=== PATIENT | male | born 1995 | race Caucasian/White ===

== ENCOUNTER 2022-08-14 01:40 | Emergency (ER) | payer SELFPAY ==
[2022-08-14 02:11] LABS: Urine Blood Negative (Negative); Urine Glucose Negative (Negative); Urine Protein Negative (Negative); Urine Specific Gravity >=1.030 (1.005-1.030)
[2022-08-14] MEDS ORDERED: CYCLOBENZAPRINE 10 MG TAB ONE (02:19)
--- NOTE | 2022-08-14 02:23 | ER ---
Nurse's Notes [facility] Name: Earnest Johnston Age: 27 yrs Sex: Male : 1995 Arrival Date: 08/14/2022 Time: 01:46 Bed 7 Private MD: Diagnosis: Muscle spasm of back Presentation: 08/14 01:57 Chief complaint: Patient states: left lower back pain x 3 days pain increases with kl movement. Coronavirus screen: Vaccine status: Patient reports being unvaccinated. Ebola Screen: Patient negative for fever greater than or equal to 101.5 degrees Fahrenheit, and additional compatible Ebola Virus Disease symptoms. Initial Sepsis Screen: Does the patient meet any 2 criteria? No. Patient's initial sepsis screen is negative. Does the patient have a suspected source of infection? No. Patient's initial sepsis screen is negative. Risk Assessment: Do you want to hurt yourself or someone else? Patient reports no desire to harm self or others. 01:57 Method Of Arrival: Ambulatory 01:57 Acuity: MARCUS 4 kl Triage Assessment: 01:59 General: Appears in no apparent distress. well groomed, well developed, Behavior is kl calm, cooperative. Pain: Complains of pain in left low back Pain currently is 7 out of 10 on a pain scale. EENT: No deficits noted. Neuro: No deficits noted. Cardiovascular: No deficits noted. Respiratory: No deficits noted. GI: No deficits noted. No signs and/or symptoms were reported involving the gastrointestinal system. : No deficits noted. No signs and/or symptoms were reported regarding the genitourinary system. Musculoskeletal: Circulation, motion, and sensation intact. Historical: - Allergies: 01:58 No Known Allergies; kl - Home Meds: 01:58 Flomax 0.4 mg Oral cap [Active]; - PMHx: 01:58 enlarged prostate; urinary retention; urethral scarring; kl - Immunization history:: Adult Immunizations not up to date. - Social history:: Smoking status: Patient reports the use of cigarette tobacco products, smokes one pack cigarettes per day. - Family history:: not pertinent. - Hospitalizations: : No recent hospitalization is reported. Screenin:00 Abuse screen: Denies threats or abuse. Denies injuries from another. Nutritional ll3 screening: No deficits noted. Tuberculosis screening: No symptoms or risk factors identified. Fall Risk None identified. Assessment: 02:00 General: Appears in no apparent distress. uncomfortable, Behavior is calm, cooperative. ll3 Neuro: Level of Consciousness is awake, alert, obeys commands, Oriented to person, place, time, situation. Derm: Skin is pink, warm \T\ dry. Musculoskeletal: Circulation, motion, and sensation intact. Reports pain in left mid back since 3 days ago. Pain is 6 out of 10 on a pain scale. Vital Signs: 01:57 BP 105 / 76; Pulse 71; Resp 18; Temp 98.2(TE); Pulse Ox 95% on R/A; Weight 121.11 kg; Height 5 ft. 10 in. (177.80 cm); Pain 7/10; 01:57 Body Mass Index 38.31 (121.11 kg, 177.80 cm) ED Course: 01:46 Patient arrived in ED. [facility] 01:46 Ovi Ricardo MD is Attending Physician. rn 01:58 Triage completed. 02:00 Patient has correct armband on for positive identification. Bed in low position. Call ll3 light in reach. Side rails up X 1. Adult w/ patient. 02:00 No provider procedures requiring assistance completed. Patient did not have IV access ll3 during this emergency room visit. 02:30 Arm band placed on Patient placed in an exam room, on a stretcher, on pulse oximetry. 3 Administered Medications: 02:21 Drug: Flexeril (cyclobenzaprine) 10 mg Route: PO; 3 02:30 Follow up: Response: No adverse reaction; Medication administered at discharge. 3 Medication: 02:00 VIS not applicable for this client. ll3 Outcome: 02:00 Discharged to home ambulatory, with significant other. 3 02:00 Condition: stable 02:00 Discharge instructions given to patient, family, Instructed on discharge instructions, follow up and referral plans. medication usage, Demonstrated understanding of instructions, follow-up care, medications, Prescriptions given X 2. 02:22 Discharge ordered by . rn 02:30 Patient left the ED. 3 Signatures: Elena Tolbert RN RN kl Nieto, Roman, MD MD rn Alexander, Jessica ja Moisés Copeland RN RN 3
--- NOTE | 2022-08-14 02:24 | EDPHYS ---
Physician Documentation [facility] Name: Earnest Johnston Age: 27 yrs Sex: Male : 1995 Arrival Date: 08/14/2022 Time: 01:46 Bed 7 Private MD: ED Physician Ovi Ricardo HPI: 08/14 02:18 This 27 yrs old Male presents to ER via Ambulatory with complaints of Back rn Pain. 02:18 The patient presents with pain that is acute, with no known mechanism of injury. The rn symptoms are located in the left mid back. Onset: The symptoms/episode began/occurred 3 day(s) ago. The pain does not radiate. Associated signs and symptoms: Pertinent positives: none Pertinent negatives: abdominal pain, chest pain, constipation, dysuria, fever, headache, hematuria, incontinence, nausea, numbness, tingling, urinary retention, vomiting, weakness. Modifying factors: The patient symptoms are alleviated by nothing, the patient symptoms are aggravated by any movement, bending, twisting. Severity of symptoms: At their worst the symptoms were mild, in the emergency department the symptoms are unchanged. The patient has not experienced similar symptoms in the past. The patient has not recently seen a physician. Pt reports left flank pain, worse with twisting and moving, no trauma or injury. No radiation. NO hx of kidney stones. NO dysuria. No sob or chest pain. No cough. Does not feel ill or have a fever. No abd pain/nausea/vomiting/diarrhea. . Historical: - Allergies: 01:58 No Known Allergies; kl - Home Meds: 01:58 Flomax 0.4 mg Oral cap [Active]; kl - PMHx: 01:58 enlarged prostate; urinary retention; urethral scarring; kl - Immunization history:: Adult Immunizations not up to date. - Social history:: Smoking status: Patient reports the use of cigarette tobacco products, smokes one pack cigarettes per day. - Family history:: not pertinent. - Hospitalizations: : No recent hospitalization is reported. ROS: 02:18 Constitutional: Negative for fever, chills, and weight loss, Eyes: Negative for injury, rn pain, redness, and discharge, Neck: Negative for injury, pain, and swelling, Cardiovascular: Negative for chest pain, palpitations, and edema, Respiratory: Negative for shortness of breath, cough, wheezing, and pleuritic chest pain, Abdomen/GI: Negative for abdominal pain, nausea, vomiting, diarrhea, and constipation, Back: + left flank pain MS/Extremity: Negative for injury and deformity, Skin: Negative for injury, rash, and discoloration, Neuro: Negative for headache, weakness, numbness, tingling, and seizure. Exam: 02:18 Constitutional: This is a well developed, well nourished patient who is awake, alert, rn and in no acute distress. Ambulatory to room without difficulty or assistance. Head/Face: Normocephalic, atraumatic. Cardiovascular: Regular rate and rhythm. No pulse deficits. Respiratory: No increased work of breathing, no retractions or nasal flaring. Abdomen/GI: Soft, non-tender Back: No spinal tenderness. No costovertebral tenderness. Full range of motion. MS/ Extremity: Pulses equal, no cyanosis. Neuro: Awake and alert, GCS 15. Normal gait. Vital Signs: 01:57 BP 105 / 76; Pulse 71; Resp 18; Temp 98.2(TE); Pulse Ox 95% on R/A; Weight 121.11 kg; kl Height 5 ft. 10 in. (177.80 cm); Pain 7/10; 01:57 Body Mass Index 38.31 (121.11 kg, 177.80 cm) kl MDM: 01:46 Patient medically screened. rn 02:18 Differential diagnosis: Pyelonephritis sprain, Ureterolithiasis muscle spasm, muscle rn strain, UTI. Data reviewed: vital signs, nurses notes, lab test result(s), urinalysis, and as a result, I will discharge patient. Counseling: I had a detailed discussion with the patient and/or guardian regarding: the historical points, exam findings, and any diagnostic results supporting the discharge/admit diagnosis, lab results, the need for outpatient follow up, to return to the emergency department if symptoms worsen or persist or if there are any questions or concerns that arise at home. Response to treatment: There is no appreciated change of the patient's symptoms at this time, and as a result, I will discharge patient. Special discussion: I discussed with the patient/guardian in detail that at this point there is no indication for admission to the hospital. It is understood, however, that if the symptoms persist or worsen the patient needs to return immediately for re-evaluation. 08/14 02:11 Order name: Urine Dipstick-Ancillary; Complete Time: 02:15 EDMS 08/14 02:06 Order name: Urine Dipstick-Ancillary (obtain specimen); Complete Time: 02:15 rn Administered Medications: 02:21 Drug: Flexeril (cyclobenzaprine) 10 mg Route: PO; ll3 02:30 Follow up: Response: No adverse reaction; Medication administered at discharge. 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
[2022-08-14 02:36] VITALS: BP 105/76; TEMP 98.2; O2SAT 95
== END 2022-08-14 02:30 | disposition home or self-care (01) ==
LOC: ER 01:40
DX: M62.830 Muscle spasm of back (principal); F17.210 Nicotine dependence, cigarettes, uncomplicated
CPT/HCPCS: 81003; 99283